=== PATIENT | male | born 1980 | race Caucasian/White ===

== ENCOUNTER 2016-04-19 13:16 | Emergency (ER) | payer OTHER ==
[~2016-04-19] VITALS: Ht 180.3 cm; Wt 75.0 kg
[~2016-04-19 13:16] MED LIST: DICL50 PO
[2016-04-19 13:19] VITALS: BP 158/105; PULSE 101; RESP 14; TEMP 97.6; O2SAT 98
--- NOTE | 2016-04-19 15:27 | PD ---
HPI Chief Complaint: Dizziness Time Seen by Provider: 15:26 Travel History International Travel<30 days: No Contact w/Intl Traveler<30days: No Traveled to known affect area: No History of Present Illness HPI 36-year-old male presents to the ED for evaluation of 4 day history of dull headache, dizziness. Patient states that he slipped 4 days ago, fell, striking his head on the counter. He denies loss of consciousness or other orthopedic injury. He states that he was feeling fine until yesterday when he hit himself in the back of the head with a piece of fencing. Again he denies loss of consciousness. He endorses mild photophobia. He denies vision changes, nausea , vomiting, ear pain, sinus congestion, cold or flu symptoms. No treatment at home. Patient was seen at the [facility] today and referred to the ED for head CT. [facility] Past Medical History Medical History: Denies Significant Hx Tetanus Vaccination: < 5 Years Influenza Vaccination: No Past Surgical History Surgical History: No Previous Surgery Social History Alcohol Use: Yes Tobacco Use: No (quit 3 years ago) Substance Use: No Allergies-Medications (Allergen,Severity, Reaction): Coded Allergies: No Known Allergies (Verified , 04/19/16) Reported Meds & Prescriptions Reported Meds & Active Scripts Active No Active Prescriptions or Reported Medications Review of Systems Except as stated in HPI: all other systems reviewed are Neg Physical Exam Narrative GENERAL: Well-nourished, well-developed white male in no acute distress. SKIN: Warm and dry. There is a 1 cm superficial laceration on the posterior occiput. No signs of infection. Thorough evaluation reveals no other edema, ecchymosis, abrasion, or laceration of the skin. HEAD: Normocephalic. Atraumatic. No raccoon eyes or garay sign. No tenderness to palpation of the skull. No bony step-offs. No malocclusion of the teeth. EYES: No scleral icterus. No injection or drainage. PERRLA. EOMI. ENT: Pearly demarco tympanic membrane is bilaterally. Nasal mucosa is moist. Oropharynx without erythema, edema or exudate. NECK: Supple, trachea midline. No JVD or lymphadenopathy. No midline tenderness to palpation. Patient retains full, active, painless range of motion of the neck. CARDIOVASCULAR: Regular rate and rhythm without murmurs, gallops, or rubs. 2+ DP and radial pulses bilaterally. RESPIRATORY: Breath sounds clear and equal bilaterally. No accessory muscle use. GASTROINTESTINAL: Abdomen soft, non-tender, nondistended. + Bowel sounds MUSCULOSKELETAL: No cyanosis, or edema. No tenderness to palpation or limitations to range of motion of the joints of the upper and lower extremities bilaterally. NEUROLOGICAL: Awake and alert. Cranial nerves II through XII intact. Motor and sensory grossly within normal limits. 5/5 muscle strength in all muscle groups. Normal speech. BACK: Nontender without obvious deformity. No CVA tenderness. No midline tenderness. tenderness. Data Data Last Documented VS Vital Signs Date Time Temp Pulse Resp B/P Pulse Ox O2 Delivery O2 Flow Rate FiO2 04/19/16 17:23 88 16 141/97 97 Room Air 04/19/16 13:[address] Brain W/O Iv Contrast(Rout) (04/19/16 15:41) Ketorolac Inj (Toradol Inj) (04/19/16 15:45) Ondansetron Odt (Zofran Odt) (04/19/16 15:45) MDM Medical Decision Making Medical Screen Exam Complete: Yes Emergency Medical Condition: Yes Differential Diagnosis Cephalgia versus vertigo versus otitis media versus abrasion versus laceration versus less likely ICH Narrative Course 36-year-old male presents to the ED for evaluation of 4 day history of dull headache, dizziness. Patient states that he slipped 4 days ago, fell, striking his head on the counter. He denies loss of consciousness or other orthopedic injury. He states that he was feeling fine until yesterday when he hit himself in the back of the head with a piece of fencing. Again he denies loss of consciousness. He endorses mild photophobia. He denies vision changes, nausea , vomiting, ear pain, sinus congestion, cold or flu symptoms. No treatment at home. Patient was seen at the [facility] today and referred to the ED for head CT. Vitals reviewed. Physical exam reveals a nontoxic appearing white male in no acute distress. There is a subcentimeter well-healing superficial laceration on the posterior aspect of the occiput but no bony step-off, no tenderness to palpation of the skull or facial bones. No focal neural deficits. ENT exam is negative. Patient was administered Zofran and Toradol. CT of the head is normal per radiology read. Recheck of the patient reveals improvement of his symptoms. The patient was instructed to continue taking ibuprofen, Benadryl as needed for headache and dizziness, follow-up with the [facility] outpatient basis should symptoms continue. We discussed reasons to return to the ED. He indicated understanding of instructions, is amenable to plan of care. He is stable and discharged home. Diagnosis Primary Impression: Cephalgia Qualified Code: R51 - Nonintractable episodic headache, unspecified headache type Additional Impression: Dizziness Referrals: Primary Care Physician Patient Instructions: Acute Headache (ED), Dizziness (ED), General Instructions Additional Instructions: Rest, hydrate. Continue with [id number] ibuprofen and Benadryl as needed for headaches and dizziness. Follow up with the primary care provider this week. Return to the ED for any urgent or emergent medical condition. Scripts No Active Prescriptions or Reported Meds Disposition: 01 DISCHARGE HOME Condition: Stable Alondra Rios Apr 19, 2016 15:27
[2016-04-19] MEDS ORDERED: ONDANSETRON ODT 4 MG TAB PO/SL ONE (15:45)
[2016-04-19] MEDS ORDERED: KETOROLAC TROMETHAMINE 60 MG/2 ML (IM) VIAL IM ONE (15:45)
--- NOTE | 2016-04-19 17:07 | RADRPT ---
EXAM DATE/TIME: 04/19/2016 16:31 [facility] COMPARISON: No previous studies available for comparison. INDICATIONS : Slipped four days ago hit right frontal area of head ,yesterday fence post hit him back of head,pain and dizzy now. RADIATION DOSE: 56.35 CTDIvol (mGy) MEDICAL HISTORY : None SURGICAL HISTORY : None. ENCOUNTER: Initial ACUITY: 4 - 6 days PAIN SCALE: 3/10 LOCATION: cranial TECHNIQUE: Multiple contiguous axial images were obtained of the head. Using automated exposure control and adj ustment of the mA and/or kV according to patient size, radiation dose was kept as low as reasonably a chievable to obtain optimal diagnostic quality images. FINDINGS: CEREBRUM: The ventricles are normal for age. No evidence of midline shift, mass lesion, hemorrhage or acute in farction. No extra-axial fluid collections are seen. POSTERIOR FOSSA: The cerebellum and brainstem are intact. The 4th ventricle is midline. The cerebellopontine angle i s unremarkable. EXTRACRANIAL: The visualized portion of the orbits is intact. SKULL: The calvaria is intact. No evidence of skull fracture. CONCLUSION: Normal examination. Mary Garza MD on April 19, 2016 at 17:05 Board Certified Radiologist. This report was verified electronically.
[2016-04-19 17:23] VITALS: BP 141/97; PULSE 88; RESP 16; O2SAT 97
== END 2016-04-19 17:33 | disposition home or self-care (01) ==
LOC: NETRI 13:16
DX: R51 Headache (principal); R42 Dizziness and giddiness; H53.149 Visual discomfort, unspecified; W01.198A Fall on same level from slipping, tripping and stumbling with subsequent striking against other object, initial encounter; Y93.9 Activity, unspecified; Y92.9 Unspecified place or not applicable
CPT/HCPCS: 70450; 96372; 99284; J1885